=== PATIENT | female | born 1955 | race Caucasian/White ===

== ENCOUNTER 2017-02-28 19:55 | Emergency (ER) | payer BC ==
[2017-02-28 20:09] VITALS: RESP 16; TEMP 98.3
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
[2017-02-28] MEDS: HYDROmorphone 1 MG/ML 1 ML SYRINGE IVP STA ×2 (20:40→21:48)
--- NOTE | 2017-02-28 21:03 | XR ---
EXAMINATION TYPE: XR hand complete RT DATE OF EXAM: 02/28/2017 8:54 PM COMPARISON: NONE HISTORY: Hand pain TECHNIQUE: 3 views FINDINGS: There is a impacted nondisplaced transverse fracture of the distal radius. There is no disl ocation. Metacarpals are intact. IMPRESSION: Acute fracture of the distal radius.
--- NOTE | 2017-02-28 21:06 | XR ---
EXAMINATION TYPE: XR forearm RT DATE OF EXAM: 02/28/2017 8:54 PM COMPARISON: NONE HISTORY: Pain TECHNIQUE: 2 views FINDINGS: There is an acute transverse fracture of the distal radial metaphysis. There is no dislocation. There is some impaction. Distal ulna appears intact. Elbow joint is intact. IMPRESSION: Acute transverse impacted distal radius fracture.
--- NOTE | 2017-02-28 21:24 | XR ---
EXAMINATION TYPE: XR wrist limited RT DATE OF EXAM: 02/28/2017 9:13 PM COMPARISON: NONE HISTORY: Pain TECHNIQUE: 2 views FINDINGS: There is impacted transverse fracture of the distal radial metaphysis. There is no dislocat ion. The carpal bones appear intact. IMPRESSION: Acute transverse fracture distal radial metaphysis.
[2017-02-28] MEDS ORDERED: HYDROcodone/APAP 5-325MG 1 EACH TAB PO STA (21:33)
[2017-02-28 22:03] VITALS: BP 151/78; PULSE 65
== END 2017-02-28 22:03 | disposition home or self-care (01) ==
LOC: EC 19:55
DX: S52.501A Unspecified fracture of the lower end of right radius, initial encounter for closed fracture (principal); V43.52XA Car driver injured in collision with other type car in traffic accident, initial encounter; Z88.0 Allergy status to penicillin; Z88.2 Allergy status to sulfonamides
CPT/HCPCS: 99284; 29125; 96374; 73090; 73100; 73130; J1170

== ENCOUNTER → 2022-01-13 | Outpatient (CLI) | payer MEDICARE, BC ==
[2022-01-13 22:25] LABS: T4, Free (Free Thyroxine) 1.28 ng/dL (0.800-1.800)
== END | disposition home or self-care (01) ==
LOC: LABWHC1 11:38
PROVIDERS: ATTEND Internal Medicine Interventional Cardiology
DX: E03.9 Hypothyroidism, unspecified (principal)
CPT/HCPCS: 36415; 84439; 84443

== ENCOUNTER 2022-01-15 05:50 | Day surgery (SDC) | payer MEDICARE, BC ==
[2022-01-15] MEDS ORDERED: CLINDAMYCIN 600 MG in SODIUM CHLORIDE 0.9% 250 ML IRRIGATION PRN (06:00)
[2022-01-15] MEDS ORDERED: SODIUM CHLORIDE 0.9% 1,000 ML IV ONE (06:13)
[2022-01-15] MEDS ORDERED: CLINDAMYCIN 900 MG in DEXTROSE 5% IN WATER 50 ML IVPB PRN ×2 (07:00)
[2022-01-15] MEDS ORDERED: LIDOCAINE 1% INJ 10MG/ML (20 ML MDV) ONE ×2 (07:07→08:02)
[2022-01-15] MEDS ORDERED: IOPAMIDOL-370 50ML BTL INJ ONE (07:39)
[2022-01-15] MEDS ORDERED: MIDAZOLAM 2 MG/2 ML VIAL IV ONE ×2 (07:40)
[2022-01-15] MEDS ORDERED: LIDOCAINE 1% INJ 10MG/ML (20 ML MDV) SQ ONE ×2 (07:52→08:08)
[2022-01-15] MEDS ORDERED: fentaNYL (PF) 50 MCG/ML 2 ML AMP ONE ×2 (08:06→10:32)
[2022-01-15] MEDS ORDERED: fentaNYL (PF) 50 MCG/ML 2 ML AMP IV ONE (08:10)
[2022-01-15] MEDS ORDERED: ACETAMINOPHEN TAB 325 MG TAB PO PRN (09:24)
[2022-01-15] MEDS ORDERED: fentaNYL (PF) 50 MCG/ML 5 ML AMP IV PRN (10:31)
--- NOTE | 2022-01-15 10:55 | XR ---
EXAMINATION TYPE: XR chest 1V portable DATE OF EXAM: 01/15/2022 Comparison: None Clinical History: 66-year-old female being placement check Findings: Left anterior chest wall pacemaker generator with right atrial and right ventricular leads. Heart nor mal size. Aorta and pulmonary vasculature within normal limits. Hyperinflation. Some strandy atelecta sis at the left base. No consolidation, pneumothorax, or pleural effusion. Impression: 1. Left anterior chest wall pacemaker generator with right atrial and right ventricular leads. No pne umothorax. 2. COPD.
--- NOTE | 2022-01-15 11:34 | ECHOF ---
Referral Reason:assess for pericardial effusion MEASUREMENTS -------- HEIGHT: 157.5 cm WEIGHT: 55.3 kg BP: 148/83 RVIDd: 3.4 cm (< 3.3) IVSd: 1.2 cm (0.6 - 1.1) LVIDd: 3.5 cm (3.9 - 5.3) LVPWd: 1.2 cm (0.6 - 1.1) IVSs: 1.3 cm LVIDs: 2.6 cm LVPWs: 1.7 cm LA Diam: 3.1 cm (2.7 - 3.8) Ao Diam: 2.9 cm (2.0 - 3.7) AV Cusp: 1.7 cm (1.5 - 2.6) MV EXCURSION: 11.453 mm (> 18.000) MV EF SLOPE: 71 mm/s (70 - 150) EPSS: 0.3 cm MV E Hasmukh: 0.80 m/s MV DecT: 290 ms MV A Hasmukh: 1.27 m/s MV E/A Ratio: 0.63 RAP: 5.00 mmHg RVSP: 32.85 mmHg FINDINGS -------- Pacerwire seen in RV and RA. This was a technically difficult study with suboptimal views. The left ventricular size is normal. There is borderline concentric left ventricular hypertrophy. Overall left ventricular systolic function is normal with, an EF between 55 - 60 %. The right ventricle is mildly enlarged. The left atrium is normal in size. The right atrial size is normal. The aortic valve was not well visualized. The mitral valve was not well visualized. Mild mitral annular calcification present. The tricuspid valve was not well visualized. Mild tricuspid regurgitation present. Right ventricu lar systolic pressure is normal at < 35 mmHg. The pulmonic valve was not well visualized. The aortic root size is normal. Normal inferior vena cava with normal inspiratory collapse consistent with estimated right atrial pre ssure of 5 mmHg. There is no pericardial effusion. CONCLUSIONS -------- 1. Pacerwire seen in RV and RA. 2. This was a technically difficult study with suboptimal views. 3. There is borderline concentric left ventricular hypertrophy. 4. Overall left ventricular systolic function is normal with, an EF between 55 - 60 %. 5. The right ventricle is mildly enlarged. 6. Mild mitral annular calcification present. 7. Mild tricuspid regurgitation present. 8. There is no pericardial effusion. ROUSTABOUT: Sanjana Pulliam RDCS
--- NOTE | 2022-01-15 11:50 | PCN ---
PROCEDURE NOTE PACEMAKER PROCEDURE NOTE: DATE OF SERVICE: 01/15/2022. PROCEDURE: 1. Transvenous temporary pacemaker from right femoral venous approach. 2. Dual-chamber permanent pacemaker from left infraclavicular approach. PERFORMED BY: Dr. Aracelis Early. Moderate conscious sedation time was 90 minutes. Patient was administered Versed. Oxygen saturation, hemodynamics and EKG were monitored closely. CLINICAL INFORMATION: Mrs. Mylene Castro is a 66-year-old lady who presented to the office with dizziness, near-syncope and had a second-degree heart block with symptoms. Heart rate was about 40 beats per minute. She was advised a dual-chamber pacemaker after due discussion with the patient and daughter regarding the risks, benefits and options. PROCEDURE NOTE: Under local anesthesia and strict aseptic precautions, a 6-Slovak introducer was placed in the right femoral vein. Using a balloon-tipped temporary pacemaker, I advanced and positioned it in the right ventricular apex. Pacemaker position was secured. The threshold was 0.4 mV. This back-up pacemaker was set at a rate of 35 with an mA of 5.0. I then unscrubbed and rescrubbed to do the permanent pacemaker from left infraclavicular approach. Under strict aseptic precautions and local anesthesia, using micropuncture needle access, I gained access under fluoroscopic guidance into the left axillary vein. Subsequently a linear 3-inch incision was made medial and parallel to the left deltopectoral groove. Blunt dissection was carried with cautery and scalpel until the fascia level. A pocket was made. Excellent hemostasis was secured. The pocket was drenched with antibiotic sponge. I then gained a second access point medial to the previous one under fluoroscopic guidance. Both wires were left in the inferior vena cava. After the pocket was made from the medial access point, a 6-Slovak introducer was placed. Through the introducer the ventricular lead was advanced and positioned under fluoroscopic guidance at the mid interventricular septum. Good position was achieved after a couple of attempts. Good thresholds and sensitivities were noted. The lead was screwed in. The lead was then secured to the underlying muscle with 0 silk sutures. The lead was checked in MALTESE and TOLEDO positions and also at 10-volt pacing. I then turned my attention to the atrial lead. A 6-Slovak introducer was placed over the wire. Atrial lead was advanced and positioned under fluoroscopic guidance. After multiple attempts, I was able to get a good location with good sensitivities and thresholds. The lead was then screwed in. The lead was also secured to the underlying muscle with 0 silk. The lead position was checked in MALTESE and TOLEDO projections. A 10-volt pacing check was also done. Everything seemed to be in order. Both the leads were separately secured to the underlying muscle. I then irrigated the pocket with the antibiotic. Both the leads were then introduced in the pulse generator and the pulse generator was also secured with a single suture in the line of the incision. The leads were checked for slack and position. Everything seemed in order. The pocket was closed in two layers. Excellent hemostasis was secured. Patient tolerated the procedure well without complication. PACEMAKER DETAILS: Pacemaker rag sorter Gao, model Assurity MRI 2272, serial #[id number]. Atrial lead rag sorter [employer], model Tendril [id number]/46, serial #[id number]. Ventricular lead rag sorter [employer], model Tendril [id number]/52, serial #[id number]. Ventricular lead was placed in the interventricular septum. Atrial lead was placed in the appendage. The atrial lead threshold was 0.5 V at 0.5 millisecond. P-waves were 2.3 mV. Lead impedance was 560 ohms. Ventricular threshold was 0.5 V at 0.5 millisecond. The R-waves were 3.2 mV. Lead impedance was 660 ohms. The pacemaker was set at a mode of DDD, base rate of 50, high rate of 110. The patient received antibiotic as I made the incision as per protocol. She tolerated the procedure uneventfully. There were no complications. She will be sent back to the room and a portable chest x-ray will be obtained today, and a two-view chest x-ray and device check tomorrow. Details were discussed with the patient and her daughter. I expect her to be discharged tomorrow if she remains stable. MMODL / IJN: [id number] /
[2022-01-15] MEDS ORDERED: amLODIPine 5 MG TAB PO SCH (14:00)
[2022-01-15] MEDS: CLINDAMYCIN 600 MG in DEXTROSE 5% IN WATER 50 ML IVPB SCH ×4 (14:36→20:50)
[2022-01-15] MEDS: SODIUM CHLORIDE 0.9% 1,000 ML IV SCH (14:37)
[2022-01-15] MEDS ORDERED: amLODIPine 2.5 MG TAB PO SCH (14:45)
[2022-01-16] MEDS: SODIUM CHLORIDE 0.9% 1,000 ML IV SCH (00:33)
[2022-01-16] MEDS: CLINDAMYCIN 600 MG in DEXTROSE 5% IN WATER 50 ML IVPB SCH ×4 (01:44→07:49)
[2022-01-16 07:05] VITALS: BP 154/84; PULSE 63; RESP 17; TEMP 97.9
--- NOTE | 2022-01-16 07:41 | XR ---
EXAMINATION TYPE: XR chest 2V DATE OF EXAM: 01/16/2022 COMPARISON: 01/15/2022 HISTORY: Shortness of breath TECHNIQUE: Frontal and lateral views of the chest are obtained. FINDINGS: Scattered senescent parenchymal changes noted. Hyperinflation compatible with COPD. Dual-lead pacer i s in place with the distal leads within the right atrium and right ventricle respectively. No pneumot horax. No evidence for infiltrate. No evidence for atelectasis. Heart size is stable. Mediastinal structures are stable and grossly unremarkable. No evidence for hilar prominence. Degenerative changes dorsal spine. IMPRESSION: 1. No evidence for acute pulmonary disease.
--- NOTE | 2022-01-16 11:03 | DS ---
DISCHARGE SUMMARY Mrs. Mylene Castro is a 66-year-old lady admitted to the hospital yesterday for a pacemaker. She came into the hospital with dizziness, lightheadedness, near-syncope, shortness of breath and was in second-degree heart block with a 2:1 conduction. She underwent dual-chamber pacemaker uneventfully yesterday. Pacemaker is functioning well on telemetry. Chest x-ray shows no complications. Vitals are stable. No JVD. S1, S2 heard normally. Short systolic murmur /6. Clear lungs. Pacemaker site is clean and dry. Abdomen is soft, nontender. Lower extremities reveal normal pulses, no edema. Right groin is clean and dry from where she had a temporary pacemaker. Central nervous system is normal. Plan is to discharge her after I check the pacemaker device today. I will see her in the office next Wednesday. Discharge instructions regarding activity, diet and medications were given. I will see her next Wednesday01/23/2022 at 2:45 p.m. for a device check and office visit. MMKARYL / IJN: [id number] /
== END 2022-01-16 12:10 | disposition home or self-care (01) ==
LOC: CATHEP 05:50 → 6NMEDSUR 09:20 → CATHEP 01-16 12:10
PROVIDERS: ATTEND Internal Medicine Interventional Cardiology
DX: I44.1 Atrioventricular block, second degree (principal); Z83.2 Family history of diseases of the blood and blood-forming organs and certain disorders involving the immune mechanism; Z72.0 Tobacco use; Z20.822 Contact with and (suspected) exposure to COVID-19; Z88.1 Allergy status to other antibiotic agents; Z88.5 Allergy status to narcotic agent; Z88.0 Allergy status to penicillin; Z88.2 Allergy status to sulfonamides; Z88.8 Allergy status to other drugs, medicaments and biological substances; J45.909 Unspecified asthma, uncomplicated
CPT/HCPCS: 93306; 33208; 87635; 71045; 71046; C1894; C1769 ×4; C1892; C1898; C1785; J2250; J2001; J3010 ×2; Q9967

== ENCOUNTER → 2023-12-17 | Outpatient (CLI) | payer MEDICARE, BC ==
--- NOTE | 2023-12-17 12:02 | CT ---
EXAMINATION TYPE: CT chest wo con DATE OF EXAM: 12/17/2023 COMPARISON: NONE HISTORY: SOB. Unspecified asthma uncomplicated. CT DLP: 284 mGycm. Automated Exposure Control for Dose Reduction was Utilized. TECHNIQUE: CT scan of the thorax is performed without IV contrast. FINDINGS: LUNGS: Mild underlying emphysematous change. Small spiculated nodule right upper lobe measuring 9 x 3 mm axial image 9. Focal linear scarring in the lingula adjacent to the fissure and mild linear scarr ing in the right lung base. No pleural effusion or pneumothorax seen bilaterally. . MEDIASTINUM: Lack of IV contrast is noted to limit evaluation for mediastinal and especially hilar ad enopathy. There are no definitive greater than 1 cm mediastinal lymph nodes. No cardiomegaly or per icardial effusion is seen. There is dual lead pacemaker noted. There is moderate coronary artery calc ification. There is small size heterogeneous thyroid gland. OTHER: Multilevel spurring in the thoracic spine. IMPRESSION: 1. Mild underlying emphysematous change without acute pulmonary process. 2. There is 9 x 3 mm spiculated right upper lobe pulmonary nodule. Consider follow-up CT in 6-12 gwen hs time to reassess as per Fleischner Society recommendations.
== END | disposition home or self-care (01) ==
LOC: RADCTMAIN 11:16
PROVIDERS: ATTEND Internal Medicine Critical Care Medicine
DX: J43.9 Emphysema, unspecified (principal); J45.909 Unspecified asthma, uncomplicated; R91.1 Solitary pulmonary nodule
CPT/HCPCS: 71250

== ENCOUNTER → 2024-02-04 | Outpatient (CLI) | payer MEDICARE, BC ==
--- NOTE | 2024-02-06 21:48 | PE ---
EXAMINATION TYPE: PET CT fusion skull to thigh DATE OF EXAM: 02/04/2024 CLINICAL INDICATION:Female, 68 years old with history of SPN R91.1; TECHNIQUE: Following the intravenous administration of 11.3 mCi of F-18 FDG, whole body images are performed from the skull base to the midthigh. Images are reviewed on the computer in the coronal, a xial, and sagittal planes. Reconstructed rotating images are created on independent workstation and reviewed on the computer. A non-contrast CT is performed in conjunction with the PET scan. Glucose level 100 81 mg/dL CT DLP: To 69 mGycm, Automated exposure control for dose reduction was used. COMPARISON: CT 12/17/2023, PET/CT None, FINDINGS: Mediastinal SUV mean is 1.9. Hepatic parenchyma SUV mean is 2.4. SKULL BASE AND NECK: No suspicious radiotracer activity. CHEST, MEDIASTINUM, AND HILAR REGION: No change in the right upper lung somewhat spiculated nodule-like density. Max SUV 1.3. This measures similarly at 9 x 3 mm. ABDOMEN AND PELVIS: Asymmetric focal uptake within the wall of the study and max SUV 8.5. MUSCULOSKELETAL STRUCTURES: No suspicious radiotracer activity. OTHER CT: Left chest wall cardiac conduction device. Mild coronary artery atherosclerosis. Cholelithi asis. Colonic diverticulosis. Moderate to large stool burden. IMPRESSION: 1. Right upper lung nodule with increased metabolic activity. Findings concerning for malignancy unt il proven otherwise. There is no significant change in morphology from 12/17/2023. 2. Focal uptake in the wall of the cecum unclear whether this is physiologic uptake or true lesion. Colonoscopy is recommended if not recently performed.
== END | disposition home or self-care (01) ==
LOC: RADXRMAIN 08:03
PROVIDERS: ATTEND Internal Medicine Critical Care Medicine
DX: R91.1 Solitary pulmonary nodule (principal)
CPT/HCPCS: 78815; A9552

== ENCOUNTER → 2024-10-30 | Outpatient (CLI) | payer MEDICARE, BC ==
[2024-10-30 16:03] LABS: Chol/HDL Ratio 3.44 Ratio; LDL Cholesterol,Calculated 112.1 mg/dL (0.0-131.0)
== END | disposition home or self-care (01) ==
LOC: LABWHC1 08:30
PROVIDERS: ATTEND Nurse Practitioner
DX: E78.5 Hyperlipidemia, unspecified (principal)
CPT/HCPCS: 36415; 80061

== ENCOUNTER 2025-02-20 06:31 | Day surgery (SDC) | payer MEDICARE, BC ==
[~2025-02-20 06:31] MED LIST: LACTATED RINGERS 1,000 ML IV SCH
[2025-02-20 06:54] VITALS: TEMP 98.8
[2025-02-20] MEDS: IV FLUID CONTINUATION 1,000 ML IV ONE (07:09)
[2025-02-20] MEDS ORDERED: PROPOFOL 10 MG/ML 20 ML VIAL IV ONE (07:23)
[2025-02-20] MEDS ORDERED: LIDOCAINE 2% (PF) 20 MG/ML 5 ML VIAL ONE (07:23)
--- NOTE | 2025-02-20 07:52 | P.PCN ---
Date of Procedure: 02/20/25 Procedure(s) Performed: Brief history: Patient is a pleasant 69-year-old white female scheduled for an elective upper endoscopy as well as colonoscopy as a part of evaluation of longstanding history of GERD and screening for history of colon cancer diagnosed in January 2024 and she is status post right hemicolectomy. Procedure performed: Esophagogastroduodenoscopy with biopsy Colonoscopy with snare polypectomy Preoperative diagnosis: Longstanding history of GERD Screening for history of colon cancer diagnosed in January 2024, status post right hemicolectomy Anesthesia: MAC Procedure: After informed consent was obtained from the patient was brought into the endoscopy unit and IV sedation was administered by anesthesia under continuous monitoring. Initially upper endoscopy was done. The Olympus GF 160 video endoscope was inserted inserted into the mouth and esophagus intubated without any difficulty and was gradually advanced into the stomach and duodenum and carefully examined. The bulb and second part of the duodenum appeared normal. The scope was then withdrawn into the stomach adequately insufflated with air and upon careful examination the antrum and mild mottling of the mucosa consistent with gastritis and biopsies were done from this area. Mucosa of the body, cardia and fundus appeared normal. Multiple small gastric polyps noted which were biopsied. The scope was then withdrawn into the esophagus. Small sliding-type hiatal hernia noted the GE junction was located at 40 cm to the incisors. It appeared regular with no erythema erosions or ulcerations. Rest of the esophagus appeared normal. Patient tolerated the procedure well. At this time the patient continued to remain sedation. Initial digital rectal examination was normal. Olympus CF 160 video colonoscope was then inserted into the rectum and gradually advanced to the right without any difficulty. Careful examination was performed as the scope was gradually being withdrawn. The prep was excellent. The ileocolic colic anastomosis appeared normal. In the proximal transverse colon there was a 1.5 cm broad-based polyp removed by piecemeal snare polypectomy. Rest of the transverse colon, descending colon, sigmoid colon and rectum appeared normal. Retroflexion was performed in the rectum and no lesions were noted. Patient tolerated the procedure well. Impression: 1. Upper endoscopy revealed mild antral gastritis and small hiatal hernia and multiple small gastric polyp 2. Colonoscopy revealed 1.5 cm broad-based polyp in the proximal transverse colon status post snare polypectomy and scattered sigmoid diverticulosis. Recommendations: Findings of this examination were discussed with the patient as well as her family. She was advised to follow-up with the biopsy results. Recommended repeat colonoscopy in 2 years because of personal history of colon cancer.
[2025-02-20 08:15] VITALS: BP 116/74; PULSE 55; RESP 18
== END 2025-02-20 08:27 | disposition home or self-care (01) ==
LOC: ORWHC2ENDO 06:31
PROVIDERS: ATTEND Internal Medicine Gastroenterology
DX: Z12.11 Encounter for screening for malignant neoplasm of colon (principal); D12.3 Benign neoplasm of transverse colon; K29.50 Unspecified chronic gastritis without bleeding; K31.7 Polyp of stomach and duodenum; K44.9 Diaphragmatic hernia without obstruction or gangrene; K57.30 Diverticulosis of large intestine without perforation or abscess without bleeding; K21.9 Gastro-esophageal reflux disease without esophagitis; J44.89 Other specified chronic obstructive pulmonary disease; Z85.038 Personal history of other malignant neoplasm of large intestine; Z90.49 Acquired absence of other specified parts of digestive tract; Z95.0 Presence of cardiac pacemaker; Z85.118 Personal history of other malignant neoplasm of bronchus and lung; Z79.51 Long term (current) use of inhaled steroids; Z79.899 Other long term (current) drug therapy
CPT/HCPCS: 88305; 45385; 43239; J2704; J2003